=== PATIENT | female | born 1995 | race Caucasian/White ===

== ENCOUNTER → 2022-03-20 | Outpatient (CLI) | payer OTHER ==
[~2022-03-20] MED LIST: IBUP-1780 PO; PROP20TA5 PO
== END ==
LOC: LABNPT 09:23
PROVIDERS: ATTEND Obstetrics & Gynecology
DX: O34.81 Maternal care for other abnormalities of pelvic organs, first trimester (principal); N83.202 Unspecified ovarian cyst, left side; Z3A.00 Weeks of gestation of pregnancy not specified
CPT/HCPCS: 84702; 87088; 87491; 87591

== ENCOUNTER 2022-04-15 09:31 | Outpatient (CLI) | payer OTHER | END 2022-04-15 11:44 | disposition home or self-care (01) | LOC: PREOP 09:31 | PROVIDERS: ATTEND Obstetrics & Gynecology | DX: Z01.818 Encounter for other preprocedural examination (principal) ==

== ENCOUNTER 2022-04-17 11:01 | Day surgery (SDC) | payer OTHER ==
[~2022-04-17] VITALS: Ht 157.5 cm; Wt 78.6 kg
[2022-04-17] VITALS (10 sets, daily range): BP systolic 97–118; BP diastolic 57–76
[2022-04-17] MEDS ORDERED: ceFAZolin INJECTION 1,000 MG ONE (11:33)
[2022-04-17 11:39] LABS: BASOPHILS % (AUTO) 0 % (0-10); EOSINOPHILS # (AUTO) 0.1 10^3/uL (0.0-0.3); EOSINOPHILS % (AUTO) 1 % (0-10); HEMATOCRIT 38 % (35-52); HEMOGLOBIN 13.1 g/dL (11.5-16.0); LYMPHOCYTES # (AUTO) 1.8 10^3/uL (1.0-4.0); LYMPHOCYTES % (AUTO) 26 % (12-44); MEAN CORPUSCULAR HEMOGLOBIN 31 pg (25-34); MEAN CORPUSCULAR HGB CONC 35 g/dL (32-36); MEAN CORPUSCULAR VOLUME 88 fL (80-99); MEAN PLATELET VOLUME 10.9 fL (9.0-12.2); MONOCYTES # (AUTO) 0.6 10^3/uL (0.0-1.0); MONOCYTES % (AUTO) 9 % (0-12); NEUTROPHILS # (AUTO) 4.4 10^3/uL (1.8-7.8); NEUTROPHILS % (AUTO) 63 % (42-75); PLATELET COUNT 307 10^3/uL (130-400)
[2022-04-17] MEDS ORDERED: ONDANSETRON 4 MG/2 ML (SDV) Z0FRAN ONE ×2 (11:45→12:16)
[2022-04-17] MEDS ORDERED: ONDANSETRON 4 MG/2 ML (SDV) Z0FRAN IVP ONE (11:45)
[2022-04-17] MEDS ORDERED: ceFAZolin INJECTION 1,000 MG VIAL IV ONE (11:45)
[2022-04-17] MEDS ORDERED: LACTATED RINGERS 1,000 ML IV PRN (11:45)
[2022-04-17] MEDS ORDERED: FLUC200T9 PO (11:49)
[2022-04-17] MEDS ORDERED: PNV1TABL9 PO (11:50)
[2022-04-17] MEDS ORDERED: SEVOFLURANE (ULTANE) 15 ML INHAL SOLN ONE ×2 (12:16→13:08)
[2022-04-17] MEDS ORDERED: fentaNYL INJ 100 MCG/2 ML AMP ONE (12:16)
[2022-04-17] MEDS ORDERED: MIDAZOLAM 2 MG/2 ML (VERSED) VIAL ONE (12:16)
[2022-04-17] MEDS ORDERED: proPOfol 200 MG/20 ML (DIPRIVAN) VIAL IV ONE (12:16)
[2022-04-17] MEDS ORDERED: LIDOCAINE PF 2% 5 ML (XYLOCAINE) VIAL ONE (12:16)
--- NOTE | 2022-04-17 12:45 | Progress Note-Pre Operative ---
Pre-Operative Progress Note H&P Reviewed The H&P was reviewed, patient examined and no changes noted. Date Seen by Provider: April 17, 2022 Time Seen by Provider: 12:45 Date H&P Reviewed: April 17, 2022 Time H&P Reviewed: 12:45 Pre-Operative Diagnosis: Missed /blighted ovum first trimester ELIAN CISSE MD April 17, 2022 12:45
--- NOTE | 2022-04-17 12:46 | Progress Note-Post Operative ---
Post-Operative Progess Note Surgeon (s)/Model Maker (s) Surgeon ELIAN CISSE MD Model Maker: None Pre-Operative Diagnosis Missed /blighted ovum first trimester Post-Operative Diagnosis Same with pathology pending Procedure & Operative Findings Date of Procedure 04/17/22 Procedure Performed/Findings D&C for first trimester blighted ovum Anesthesia Type General Estimated Blood Loss Estimated blood loss (mL): minimal Specimens/Packing Specimens Removed Uterine contents/products of conception ELIAN CISSE MD April 17, 2022 12:46
--- NOTE | 2022-04-17 12:50 | Discharge Inst-Surgical ---
Discharge Inst-Surgical Depart Medication/Instructions New, Converted or Re-Newed RX: Other Consults/Follow Up Patient Instructions: As directed Orders & Referrals Follow Up Appt: Call to make follow up appt. for patient in 2 weeks. Activity: as tolerated. May take down [id number] nonsteroidal anti-inflammatories/Motrin/Advil up to 800 mg every 6 hours Diet: As tolerated-Clear Liquids only if nauseated. shower or tub bathe as desired. Nothing per vagina (no tampons, douching, or intercoarse) for 2 weeks. Patient to return to the clinic as soon as possible for: Temperature greater than 101F, Severe Pain, Foul discharge from incision or vagina, Excessive Bleeding (more than a period). Activity Activity as Tolerated: No Diet Discharge Diet: No Restrictions ELIAN CISSE MD April 17, 2022 12:50
[2022-04-17] MEDS ORDERED: oxyCODONE/APAP 5/325MG (PERCOCET 5) TABLET PO PRN (13:00)
[2022-04-17] MEDS ORDERED: D5 LR IV SOLUTION 1,000 ML IV SCH (13:00)
[2022-04-17] MEDS ORDERED: fentaNYL INJ 100 MCG/2 ML AMP IVP PRN (13:00)
[2022-04-17] MEDS ORDERED: KETOROLAC 30 MG/ML VIAL IVP ONE (13:00)
[2022-04-17] MEDS ORDERED: ONDANSETRON 4 MG/2 ML (SDV) Z0FRAN IVP PRN ×2 (13:00→13:15)
[2022-04-17] MEDS ORDERED: MEPERIDINE (DEMEROL) INJ 50 MG/ML IVP ONE (13:15)
[2022-04-17] MEDS ORDERED: fentaNYL INJ 100 MCG/2 ML AMP IVP ONE (13:15)
[2022-04-17] MEDS ORDERED: morphine INJ 10 MG/ML 1ML (SYR OR VIAL) IVP ONE (13:15)
--- NOTE | 2022-04-17 13:17 | Anesthesia-General Post-Op ---
General Patient Condition Mental Status/LOC: Same as Preop Cardiovascular: Satisfactory Nausea/Vomiting: Absent Respiratory: Satisfactory Pain: Controlled Complications: Absent Post Op Complications Complications None Follow Up Care/Instructions Patient Instructions None needed. Anesthesia/Patient Condition Patient Condition Patient is doing well, no complaints, stable vital signs, no apparent adverse anesthesia problems. No complications reported per nursing. JAMEY KAYE CRNA April 17, 2022 13:16
--- NOTE | 2022-04-17 23:14 | OPERATIVE REPORT ---
DATE OF SERVICE: 04/17/2022 PREOPERATIVE DIAGNOSIS: First trimester missed /blighted ovum. POSTOPERATIVE DIAGNOSIS: First trimester missed /blighted ovum. OPERATIVE PROCEDURE: Treatment of a missed first trimester with D and C. OPERATIVE DESCRIPTION: With the patient in the supine position under satisfactory general anesthesia, she was repositioned in dorsal lithotomy position in the [facility] and prepped and draped in the usual fashion for vaginal surgery. A weighted speculum placed in posterior fornix of vagina, cervix exposed and grasped anteriorly with single tooth tenaculum. Uterus was sounded to 14 cm with uterine sound. The cervix was then serially dilated with Bill dilators to a #20 Bill and then a #19 Bear dilator was the final step in dilation. curved suction curette was introduced and uterine cavity was suction curettaged in all 4 quadrants with removal of a moderate to large amount of trophoblastic and decidual appearing tissue, blood clot, amniotic fluid and debris. The curved suction curette was removed. The endometrial cavity was sharply curettaged in all 4 quadrants with removal of an additional aliquot of tissue. The curved suction curette was introduced a final time and the endometrial cavity evacuated of all blood clot and debris. The suction curette was removed. There was very minimal bleeding from the cervical os. The tenaculum was removed from the cervix. One of the puncture sites was oozing and it was touched with silver nitrate to effect hemostasis. Now with sponge and needle counts correct, hemostasis assured. Blood loss was around 200 to 250 mL. The patient was stable. Procedure was complete and terminated. The uterus was decreased in size from preop of 10 to 12-week size to about 8-week size, now it was nice and firm. The patient was uneventfully awakened from her general anesthesia and transferred to the recovery room in stable condition with plans for discharge home PAR. Job ID: [id number] DocumentID: [id number] Dictated Date: 04/17/2022 13:21:25 Food Service Order Clerk Date: 04/17/2022 23:13:30 Dictated By: ELIAN CISSE MD
== END 2022-04-17 15:11 ==
LOC: SDC 11:01
PROVIDERS: ATTEND Obstetrics & Gynecology
DX: O02.1 Missed abortion (principal)
CPT/HCPCS: 36415; 85025; 87081

== ENCOUNTER → 2022-07-05 | Outpatient (CLI) | payer OTHER ==
[~2022-07-05] MED LIST changes: +FLUC200T9 PO; +PNV1TABL9 PO
[2022-07-05 09:38] LABS: HEMATOCRIT 38 % (35-52); HEMOGLOBIN 12.4 g/dL (11.5-16.0); MEAN CORPUSCULAR HEMOGLOBIN 30 pg (25-34); MEAN CORPUSCULAR HGB CONC 33 g/dL (32-36); MEAN CORPUSCULAR VOLUME 91 fL (80-99); MEAN PLATELET VOLUME 10.5 fL (9.0-12.2); PLATELET COUNT 310 10^3/uL (130-400); WHITE BLOOD COUNT 7.4 10^3/uL (4.3-11.0)
[2022-07-05 10:06] LABS: ALBUMIN 4.2 GM/DL (3.2-4.5); BILIRUBIN,TOTAL 0.6 MG/DL (0.1-1.0); CREATININE SERUM 0.78 MG/DL (0.60-1.30); POTASSIUM 4.2 MMOL/L (3.6-5.0); TOTAL PROTEIN 6.6 GM/DL (6.4-8.2)
[2022-07-05 10:07] LABS: ERYTHROCYTE SEDIMENTATION RATE 14 MM/HR (0-20)
== END ==
LOC: LAB 09:16
PROVIDERS: ATTEND Family Medicine
DX: G43.909 Migraine, unspecified, not intractable, without status migrainosus (principal); H53.9 Unspecified visual disturbance; N96 Recurrent pregnancy loss; L56.8 Other specified acute skin changes due to ultraviolet radiation
CPT/HCPCS: 36415; 80053; 85027; 85652

== ENCOUNTER → 2022-07-24 | Outpatient (CLI) | payer OTHER ==
--- NOTE | 2022-07-24 17:06 | Diagnostic Imaging Report ---
PROCEDURE: MR imaging of the brain without contrast. TECHNIQUE: Multiplanar, multisequence MR imaging of the brain was performed without contrast. INDICATION: Migraines for one month. Associated vision changes. COMPARISON: none FINDINGS: Please note metallic artifact is visualized originating from the oral cavity. This limits evaluation of the paranasal sinuses, globes and orbits, and anterior portion of the frontal lobes. No acute ischemia, mass, or hemorrhage. The ventricles, cortical sulci, and basilar cisterns are symmetric and unremarkable. The sellar and suprasellar regions have a normal appearance. The brainstem and posterior fossa are unremarkable. The visualized paranasal sinuses and mastoid air cells demonstrate normal signal characteristics. The globes and orbits are symmetric and unremarkable. The scalp and calvarium have a normal appearance. IMPRESSION: 1. No acute ischemia, mass, or hemorrhage. No focal signal abnormalities. Please note evaluation is somewhat suboptimal due to metallic artifact originating from the oral cavity. Dictated by: Dictated on workstation # [id number]
== END ==
LOC: RAD 14:10
PROVIDERS: ATTEND Family Medicine
DX: G43.909 Migraine, unspecified, not intractable, without status migrainosus (principal); H53.9 Unspecified visual disturbance; N96 Recurrent pregnancy loss; L56.8 Other specified acute skin changes due to ultraviolet radiation
CPT/HCPCS: 70551

== ENCOUNTER 2022-08-31 09:00 | Outpatient (RCR) | payer OTHER ==
[2022-09-06] MEDS ORDERED: PROP40TA5 (23:01)
[2022-09-06] MEDS ORDERED: PROG100C11 (23:01)
[2022-09-06] MEDS ORDERED: NITR100C10 (23:01)
[2022-09-07] MEDS ORDERED: OMEG100032 PO (05:22)
[2022-09-07] MEDS ORDERED: ASPI-999 PO (05:23)
[2022-09-07] MEDS ORDERED: OXYC-199 PO (07:05)
[2022-09-07] MEDS ORDERED: IBUP-1780 PO (07:05)
== END 2022-09-23 | disposition home or self-care (01) ==
LOC: LAB 09:00
PROVIDERS: ATTEND Obstetrics & Gynecology
DX: Z32.01 Encounter for pregnancy test, result positive (principal)
CPT/HCPCS: 36415; 84702

== ENCOUNTER 2022-09-06 22:40 | Inpatient (IN) | payer OTHER ==
[~2022-09-06] VITALS: Ht 160 cm; Wt 83.0 kg
[2022-09-06] MEDS ORDERED: METOCLOPRAMIDE INJ 10 MG/2 ML (REGLAN) IVP STA (22:55)
[2022-09-06] MEDS ORDERED: LACTATED RINGERS 1,000 ML IV ONE (23:00)
[2022-09-06] MEDS ORDERED: PROG100C11 (23:01)
[2022-09-06] MEDS ORDERED: NITR100C10 (23:01)
[2022-09-06] MEDS ORDERED: PROP40TA5 (23:01)
--- NOTE | 2022-09-06 23:10 | ED GU-Female ---
General Chief Complaint: Lower Extremity Stated Complaint: ABD PAIN/SPOTTING 5 WKS PREG Source: patient History of Present Illness Date Seen by Provider: Sep 06, 2022 Time Seen by Provider: 22:56 Initial Comments PT ARRIVES VIA POV FROM HOME STATE SHE IS 5 WEEKS WITH LMP 07/30/22 HAS BEEN HAVING SPOTTING OFF AND ON THROUGHOUT THE , ALONG WITH INTERMITTENT CRAMPING HAD POSITIVE TEST 2-3 WEEKS AGO HAS NOT SEEN A DR AT ANY TIME FOR THIS PROBLEM, BUT HAS HAD LAB DONE--STATES SHE HAD HER 4TH HCG LEVEL DONE ON Friday09/04/22 AND WAS GOING DOWN--FROM 675 DOWN TO 425 ( PRIOR LEVELS WERE 102 ON 08/29/22 AND 300 ON 08/31/22 ON LAB DONE HERE AT HOSPITAL-PT STATES THEY WERE GOING UP, THEN STARTED GOING DOWN) HAS NOT HAD AN ULTRASOUND FOR THIS SPOTTING HAS BEEN JUST LIGHT SPOTTING ON TISSUE WITH WIPING, HAS NOT USED ANY PADS AT ANY TIME. HAS A PANTI-LINER ON AND THERE IS NO BLOOD ON IT. JACOB IS "A SOLID SHARP PAIN, WITH CRAMPING AND SEVERE SHARP PAINS SOMETIMES" --ALL ACROSS LOWER ABDOMEN, AND STATES THE SHARP PAINS RADIATE DOWN HER RIGHT LEG HAS HAD ONGOING NAUSEA AND VOMITING THROUGHOUT , BUT TONIGHT SHE VOMITED BECAUSE THE PAIN WAS SO BAD. THOUGHT SHE WAS HAVING UTI SYMPTOMS EARLIER IN THE WEEK, AND CALLED DR. CISSE'S OFFICE ON FRIDAY OR FRIDAY AND RX FOR MACROBID CALLED IN--LAST DOSE IS TOMORROW. NO CONCERNS FOR STD'S, AND NO VAGINAL DISCHARGE PRIOR TO ONSET OF CURRENT SYMPTOMS HAS BEEN TAKING MIDOL, TYLENOL AND FLEXERIL FOR PAIN--NO RELIEF. TOOK FLEXERIL 2 HOURS AGO. PT IS AB 2--D&C'S FOR EACH MISCARRIAGE--ON 08/24/21 AND 04/17/22 PCP: DR. KRAMER RAILROAD YARD WORKER: DR. CISSE. Allergies and Home Medications Allergies Coded Allergies: sulfamethoxazole (Verified Allergy, Unknown, Rash, 03/20/22) trimethoprim (Verified Allergy, Unknown, Rash, 03/20/22) Patient Home Medication List Home Medication List Reviewed: Yes Fluconazole (Fluconazole) 200 Mg Tablet, 200 MG PO WEEK, (Reported) Entered as Reported by: CARLOS MORALES on 04/17/22 1149 Ibuprofen (Ibuprofen) 800 Mg Tablet, 800 MG PO Q6H PRN for PAIN Prescribed by: ELIAN ELLER on 09/20/19 0806 Nitrofurantoin Monohyd/M-Cryst (Nitrofurantoin Norton-Mcr 100 mg) 100 Mg Capsule, (Reported) Entered as Reported by: MARNIE BLACKBURN on 09/06/222300 Last Action: New Order Pnv Cmb#21/Iron/Folic Acid ( Complete Caplet) 14 Mg Iron-400 Mcg Tablet, 1 EACH PO DAILY, (Reported) Entered as Reported by: CARLOS MORALES on 04/17/22 1150 Progesterone,Micronized (Progesterone) 100 Mg Capsule, (Reported) Entered as Reported by: MARNIE BLACKBURN on 09/06/222300 Last Action: New Order Propranolol HCl (Propranolol HCl) 40 Mg Tablet, (Reported) Entered as Reported by: MARNIE BLACKBURN on 09/06/222300 Last Action: New Order Review of Systems Review of Systems Constitutional: no symptoms reported Respiratory: no symptoms reported Cardiovascular: no symptoms reported Gastrointestinal: see HPI, abdominal pain, nausea, vomiting Genitourinary: no symptoms reported, dysuria : Yes LMP: Jul 30, 2022 Musculoskeletal: see HPI Skin: no symptoms reported Psychiatric/Neurological: No Symptoms Reported Endocrine: No Symptoms Reported Hematologic/Lymphatic: No Symptoms Reported Past Scmgdtj-Hqzbsc-Zdrwnf Hx Patient Social History Tobacco Use?: No Smoking Status: Never a Smoker Smokeless Tobacco Frequency: Never a User Use of E-Cig and/or Vaping Camilo: Never a User Substance use?: No Alcohol Use?: Yes Alcohol Frequency: Once in a while Pt feels they are or have been: No Immunizations Up To Date First/Initial COVID19 Vaccinat: 12/14 Second COVID19 Vaccination Ruben: 12/14 COVID19 Vaccine Resident Physician: JORGE Seasonal Allergies Seasonal Allergies: No Past Medical History Surgery/Hospitalization HX: WISDOM TEETH REMOVED D&C 09/20/2019 FOR DUB D&C X 2 FOR MISCARRIAGES--08/24/2021, 04/17/2022 Surgeries: Yes (wisdom teeth; D&C X3) Respiratory: No Currently Using CPAP: No Currently Using BIPAP: No Cardiac: No Neurological: Yes Headaches /Migraines : Yes Hx : 3 Hx Para: 0 Hx Total # of Abortions (Sp): 2 Reproductive Disorders: Yes (DUB) Female Reproductive Disorders: Menstrual Problems Genitourinary: No Gastrointestinal: No Musculoskeletal: No Endocrine: No HEENT: No Cancer: No Psychosocial: No Integumentary: Yes (REPORTS MRSA SKIN INFECTION APPROX 12 YRS AGO, [place] WITH PO ABX) Blood Disorders: No Physical Exam Vital Signs Vital Signs - First Documented 09/06/22 22:54 Temp 37.1 Pulse 74 Resp 18 B/P (MAP) 125/102 (110) Pulse Ox 98 O2 Delivery Room Air Capillary Refill : Height, Weight, BMI Height: '" Weight: lbs. oz. kg; 31.68 BMI Method: General Appearance: WD/WN, no apparent distress (BUT LOOKS UNCOMFORTABLE. WALKS SLIGHTLY BENT AT WAIST, HOLDING RIGHT LOWER ABDOMEN. THEN DOES NOT WANT TO SIT OR LAY ON BED, SITTING ON EDGE OF BED WITH RIGHT LEG HANGING OFF THE BED), other Cardiovascular: regular rate, rhythm, no murmur Respiratory: normal breath sounds Gastrointestinal: soft; No distended; guarding, rebound, tenderness (DIFFUSE LOWER ABDOMINAL TENDERNESS, BUT IS VERY TENDER IN RLQ, WITH EQUIVOCAL REBOUND IN RLQ. ); No hernia, No mass Back: no CVA tenderness Extremities: normal inspection Neurologic/Psychiatric: no motor/sensory deficits, alert, oriented x 3 Skin: normal color, warm/dry Progress/Results/Core Measures Suspected Sepsis SIRS Temperature: Pulse: Respiratory Rate: Laboratory Tests 09/06/22 23:13: White Blood Count 13.5H Blood Pressure / Mean: Laboratory Tests 09/06/22 23:13: Creatinine 0.93, Platelet Count 416H, Total Bilirubin 0.5 Results/Orders Lab Results Laboratory Tests Test 09/06/22 23:11 09/06/22 23:13 Range/Units Urine Color YELLOW Urine Clarity CLEAR Urine pH 6.5 5-9 Urine Specific [place] 1.025 H 1.016-1.022 Urine Protein NEGATIVE NEGATIVE Urine Glucose (UA) NEGATIVE NEGATIVE Urine Ketones NEGATIVE NEGATIVE Urine Nitrite NEGATIVE NEGATIVE Urine Bilirubin NEGATIVE NEGATIVE Urine Urobilinogen 0.2 < = 1.0 MG/DL Urine Leukocyte Esterase NEGATIVE NEGATIVE Urine RBC (Auto) 3+ H NEGATIVE Urine RBC 10-25 H /HPF Urine WBC NONE /HPF Urine Squamous Epithelial Cells 0-2 /HPF Urine Crystals NONE /LPF Urine Bacteria NEGATIVE /HPF Urine Casts NONE /LPF Urine Mucus SMALL H /LPF Urine Culture Indicated NO Urine Opiates Screen NEGATIVE NEGATIVE Urine Oxycodone Screen NEGATIVE NEGATIVE Urine Methadone Screen NEGATIVE NEGATIVE Urine Propoxyphene Screen NEGATIVE NEGATIVE Urine Barbiturates Screen NEGATIVE NEGATIVE Ur Tricyclic Antidepressants Screen NEGATIVE NEGATIVE Urine Phencyclidine Screen NEGATIVE NEGATIVE Urine Amphetamines Screen NEGATIVE NEGATIVE Urine Methamphetamines Screen NEGATIVE NEGATIVE Urine Benzodiazepines Screen NEGATIVE NEGATIVE Urine Cocaine Screen NEGATIVE NEGATIVE Urine Cannabinoids Screen NEGATIVE NEGATIVE White Blood Count 13.5 H 4.3-11.0 10^3/uL Red Blood Count 4.17 3.80-5.11 10^6/uL Hemoglobin 12.7 11.5-16.0 g/dL Hematocrit 37 35-52 % Mean Corpuscular Volume 88 80-99 fL Mean Corpuscular Hemoglobin 31 25-34 pg Mean Corpuscular Hemoglobin Concent 35 32-36 g/dL Red Cell Distribution Width 12.7 10.0-14.5 % Platelet Count 416 H 130-400 10^3/uL Mean Platelet Volume 10.7 9.0-12.2 fL Immature Granulocyte % (Auto) 0 % Neutrophils (%) (Auto) 58 42-75 % Lymphocytes (%) (Auto) 31 12-44 % Monocytes (%) (Auto) 9 0-12 % Eosinophils (%) (Auto) 1 0-10 % Basophils (%) (Auto) 1 0-10 % Neutrophils # (Auto) 7.9 H 1.8-7.8 10^3/uL Lymphocytes # (Auto) 4.1 H 1.0-4.0 10^3/uL Monocytes # (Auto) 1.2 H 0.0-1.0 10^3/uL Eosinophils # (Auto) 0.2 0.0-0.3 10^3/uL Basophils # (Auto) 0.1 0.0-0.1 10^3/uL Immature Granulocyte # (Auto) 0.0 0.0-0.1 10^3/uL Sodium Level 140 135-145 MMOL/L Potassium Level 4.0 3.6-5.0 MMOL/L Chloride Level 108 H 98-107 MMOL/L Carbon Dioxide Level 19 L 21-32 MMOL/L Anion Gap 13 5-14 MMOL/L Blood Urea Nitrogen 15 7-18 MG/DL Creatinine 0.93 0.60-1.30 MG/DL Estimat Glomerular Filtration Rate 87 BUN/Creatinine Ratio 16 Glucose Level 99 70-105 MG/DL Calcium Level 9.3 8.5-10.1 MG/DL Corrected Calcium 9.1 8.5-10.1 MG/DL Total Bilirubin 0.5 0.1-1.0 MG/DL Aspartate Amino Transf (AST/SGOT) 16 5-34 U/L Alanine Aminotransferase (ALT/SGPT) 14 0-55 U/L Alkaline Phosphatase 52 40-136 U/L Total Protein 7.2 6.4-8.2 GM/DL Albumin 4.3 3.2-4.5 GM/DL Human Chorionic Gonadotropin, Quant 526 H <5 MIU/ML My Orders Orders - CHRIS RUIZ DO Cbc With Automated Diff (09/06/22:55) Comprehensive Metabolic Panel (09/06/22 22:55) Drug Screen Stat (Urine) (09/06/22 22:55) Hcg,Quantitative (09/06/22:55) Ua Culture If Indicated (09/06/22:55) Abo Rh Type (09/06/22:55) Monitor-Rhythm Ecg Trace Only (09/06/22 22:55) Ed Iv/Invasive Line Start (09/06/22 22:55) Lactated Ringers (Lr 1000 Ml Iv Solution (09/06/22 23:00) Metoclopramide Injection (Reglan Injecti (09/06/22 22:55) Us Ob<14 Wks Sngle W/Transvag (09/07/22 23:57) Ed Iv/Invasive Line Start (09/07/22 03:23) Lactated Ringers (Lr 1000 Ml Iv Solution (09/07/22 03:30) Fentanyl Inj (Sublimaze Injection) (09/07/22 03:23) Medications Given in ED Current Medications Medications Dose Ordered Sig/Josie Route Start Time Stop Time Status Last Admin Dose Admin Lactated Ringer's 1,000 ml @ 0 mls/hr Q0M ONCE IV 09/06/22 23:00 09/06/22 23:03 DC 09/06/22 23:12 0 MLS/HR Vital Signs/I&O 09/06/22 09/07/22 22:54 03:33 Temp 37.1 37.0 Pulse 74 72 Resp 18 16 B/P (MAP) 125/102 (110) 119/74 Pulse Ox 98 99 O2 Delivery Room Air Room Air 09/07/22 00:00 Intake Total 1000 ml Balance 1000 ml Capillary Refill : Progress Note : Progress Note BLOOD TYPE IS A+ GIVEN IV FLUIDS, AND REGLAN--NAUSEA IMPROVED. LATER GIVEN FENTANYL FOR PAIN NO DETERIORATION IN PT'S CONDITION DURING ER STAY 0058--ACTING MANAGER HERE. NO VERBAL REPORT FROM ACTING MANAGER, WHEN HE BROUGHT PT BACK MARKED DELAY IN OBTAINING ULTRASOUND RESULTS 023--CALLED XRAY DEPT, THERE IS NO ULTRASOUND REPORT YET. CLINICAL NURSING MANAGER REPORTS THAT ACTING MANAGER DID NOT SEND ULTRASOUND FILMS TO [facility]. CLINICAL NURSING MANAGER WILL SEND THEM NOW. Diagnostic Imaging Comments OB ULTRASOUND--PER [facility] RADIOLOGIST VIA PHONE AT [id number], AND VIA FAX AT [phone] -EMPTY/NORMAL UTERUS -RIGHT OVARY/ADNEXA IS ENLARGED AND ABNORMAL, WITH OUT INCREASED DOPPLER FLOW. -FREE FLUID IN PELVIS AND RIGHT ADNEXA. -FINDINGS CONSISTENT WITH RIGHT ECTOPIC GESTATION. Reviewed: Reviewed by Me, Discussed w/Radiologist Departure Communication (Admissions) 314--SPOKE WITH DR. CISSE. HE ADVISES TO ADMIT PT AND HE WILL TAKE TO SURGERY FIRST THING THIS MORNING, PT IS HEMODYNAMICALLY STABLE. Impression Primary Impression: RIGHT ECTOPIC GESTATION Disposition: ADMITTED INPATIENT Condition: Stable Admissions Decision to Admit Reason: Admit from ER (General) Decision to Admit/Date: Sep 07, 2022 Time/Decision to Admit Time: 03:15 Departure-Patient Inst. Referrals: MICHELLE KRAMER DO (PCP/Family) Primary Care Physician CHRIS RUIZ DO Sep 06, 2022 23:10
[2022-09-06 23:31] LABS: BASOPHILS # (AUTO) 0.1 10^3/uL (0.0-0.1); BASOPHILS % (AUTO) 1 % (0-10); EOSINOPHILS # (AUTO) 0.2 10^3/uL (0.0-0.3); EOSINOPHILS % (AUTO) 1 % (0-10); HEMATOCRIT 37 % (35-52); HEMOGLOBIN 12.7 g/dL (11.5-16.0); LYMPHOCYTES # (AUTO) 4.1 10^3/uL (1.0-4.0); LYMPHOCYTES % (AUTO) 31 % (12-44); MEAN CORPUSCULAR HEMOGLOBIN 31 pg (25-34); MEAN CORPUSCULAR HGB CONC 35 g/dL (32-36); MEAN CORPUSCULAR VOLUME 88 fL (80-99); MEAN PLATELET VOLUME 10.7 fL (9.0-12.2); MONOCYTES # (AUTO) 1.2 10^3/uL (0.0-1.0); MONOCYTES % (AUTO) 9 % (0-12); NEUTROPHILS # (AUTO) 7.9 10^3/uL (1.8-7.8); NEUTROPHILS % (AUTO) 58 % (42-75); PLATELET COUNT 416 10^3/uL (130-400); WHITE BLOOD COUNT 13.5 10^3/uL (4.3-11.0)
[2022-09-06 23:36] LABS: BILIRUBIN,URINE NEGATIVE (NEGATIVE); CLARITY,URINE CLEAR; COLOR,URINE YELLOW; GLUCOSE, URINE (UA) NEGATIVE (NEGATIVE); KETONES,URINE NEGATIVE (NEGATIVE); LEUKOCYTE ESTERASE ,URINE NEGATIVE (NEGATIVE); NITRITE,URINE NEGATIVE (NEGATIVE); PH,URINE 6.5 (5-9); PROTEIN,URINE NEGATIVE (NEGATIVE)
[2022-09-06 23:46] LABS: AMPHETAMINE SCREEN, URINE NEGATIVE (NEGATIVE); BARBITURATE SCREEN URINE NEGATIVE (NEGATIVE); BENZODIAZEPINES SCREEN URINE NEGATIVE (NEGATIVE); COCAINE SCREEN URINE NEGATIVE (NEGATIVE); METHADONE STAT NEGATIVE (NEGATIVE); OXYCODONE STAT NEGATIVE (NEGATIVE); TRICYCLIC ANTIDEPRESSANTS SCRE NEGATIVE (NEGATIVE)
[2022-09-06 23:47] LABS: CANNABINOID SCREEN, URINE NEGATIVE (NEGATIVE); OPIATE SCREEN URINE NEGATIVE (NEGATIVE); PROPOXYPHENE STAT NEGATIVE (NEGATIVE)
[2022-09-06 23:50] LABS: BACTERIA,URINE NEGATIVE /HPF; SQUAMOUS EPITHELIAL CELL,UR 0-2 /HPF
[2022-09-07] VITALS (11 sets, daily range): BP systolic 106–129; BP diastolic 56–85
[2022-09-07] LABS: ALBUMIN 4.3 GM/DL (3.2-4.5); BILIRUBIN,TOTAL 0.5 MG/DL (0.1-1.0); CALCIUM 9.3 MG/DL (8.5-10.1); CREATININE SERUM 0.93 MG/DL (0.60-1.30); TOTAL PROTEIN 7.2 GM/DL (6.4-8.2)
[2022-09-07] MEDS ORDERED: fentaNYL INJ 100 MCG/2 ML AMP IVP STA (03:23)
[2022-09-07] MEDS ORDERED: LACTATED RINGERS 1,000 ML IV ONE (03:30)
[2022-09-07] MEDS ORDERED: LACTATED RINGERS 1,000 ML IV SCH (04:00)
[2022-09-07] MEDS ORDERED: ONDANSETRON 4 MG/2 ML (SDV) Z0FRAN IVP PRN ×2 (04:00→07:15)
[2022-09-07] MEDS ORDERED: fentaNYL INJ 100 MCG/2 ML AMP IVP PRN (04:00)
[2022-09-07] MEDS ORDERED: OMEG100032 PO (05:22)
[2022-09-07] MEDS ORDERED: ASPI-999 PO (05:23)
[2022-09-07 05:37] LABS: BASOPHILS # (AUTO) 0.1 10^3/uL (0.0-0.1); BASOPHILS % (AUTO) 1 % (0-10); EOSINOPHILS # (AUTO) 0.1 10^3/uL (0.0-0.3); EOSINOPHILS % (AUTO) 1 % (0-10); HEMATOCRIT 36 % (35-52); HEMOGLOBIN 12.3 g/dL (11.5-16.0); LYMPHOCYTES # (AUTO) 3.1 10^3/uL (1.0-4.0); LYMPHOCYTES % (AUTO) 37 % (12-44); MEAN CORPUSCULAR HEMOGLOBIN 31 pg (25-34); MEAN CORPUSCULAR HGB CONC 34 g/dL (32-36); MEAN CORPUSCULAR VOLUME 89 fL (80-99); MONOCYTES # (AUTO) 0.6 10^3/uL (0.0-1.0); MONOCYTES % (AUTO) 8 % (0-12); NEUTROPHILS # (AUTO) 4.5 10^3/uL (1.8-7.8); NEUTROPHILS % (AUTO) 54 % (42-75); PLATELET COUNT 352 10^3/uL (130-400); WHITE BLOOD COUNT 8.4 10^3/uL (4.3-11.0)
[2022-09-07 05:55] LABS: POTASSIUM 3.7 MMOL/L (3.6-5.0)
[2022-09-07 05:56] LABS: CALCIUM 9.2 MG/DL (8.5-10.1)
[2022-09-07 06:01] LABS: CREATININE SERUM 0.78 MG/DL (0.60-1.30)
[2022-09-07] MEDS ORDERED: LIDOCAINE/EPI 1%-1:100,000 (XYLOCAINE) 10 ML ONE (06:40)
[2022-09-07] MEDS ORDERED: ceFAZolin INJECTION 1,000 MG ONE (06:41)
[2022-09-07] MEDS ORDERED: ROCURONIUM 10 MG/ML 5 ML SYRINGE IV ONE (06:49)
[2022-09-07] MEDS ORDERED: LIDOCAINE PF 2% 5 ML (XYLOCAINE) VIAL ONE (06:49)
[2022-09-07] MEDS ORDERED: proPOfol 200 MG/20 ML (DIPRIVAN) VIAL IV ONE (06:49)
[2022-09-07] MEDS ORDERED: MIDAZOLAM 2 MG/2 ML (VERSED) VIAL ONE (06:49)
[2022-09-07] MEDS ORDERED: ONDANSETRON 4 MG/2 ML (SDV) Z0FRAN ONE ×2 (06:49→07:38)
[2022-09-07] MEDS ORDERED: fentaNYL INJ 100 MCG/2 ML AMP ONE (06:49)
--- NOTE | 2022-09-07 06:54 | Diagnostic Imaging Report ---
TECHNIQUE: Live grayscale and color Doppler ultrasound was performed of the pelvis both transabdominally and endovaginally. REASON FOR THE EXAM: Right-sided abdominal pain. Spotting. COMPARISON: None. FINDINGS: The uterus and ovaries have an unremarkable transabdominal appearance. Endovaginal imaging was performed for further characterization. The uterus measures 8.1 x 3.6 x 5.4 cm. The endometrial stripe measures 0.8 cm. No findings to suggest intrauterine gestation. No uterine mass is seen. The right ovary measures 4.8 x 2.8 x 3.1 cm. There is a somewhat irregular contour of the right ovary with a possible involuting cyst present. Normal color Doppler flow is seen within the right ovary. The left ovary measures 2.8 x 2.1 x 2.5 cm. A dominant follicle/cyst is seen in the left ovary measuring 1.6 cm. There is normal color Doppler flow within the left ovary. A small amount of free fluid is seen in the pelvis. IMPRESSION: 1. No sonographic evidence of intrauterine gestation. 2. Irregular appearance of the right ovary with possible involuted cyst present. This could potentially represent a demised ectopic in the correct clinical scenario. Recommend continued followup with serial beta hCGs and pelvic ultrasound as indicated. 3. No evidence of ovarian torsion. 4. Small amount of free fluid in the pelvis. 5. I agree with the overnight report. Dictated by: Dictated on workstation # [id number]
[2022-09-07] MEDS ORDERED: IBUP-1780 PO (07:05)
[2022-09-07] MEDS ORDERED: OXYC-199 PO (07:05)
--- NOTE | 2022-09-07 07:07 | Discharge Inst-Surgical ---
Discharge Inst-Surgical Depart Medication/Instructions New, Converted or Re-Newed RX: Transmitted to Pharmacy Consults/Follow Up Patient Instructions: As directed Orders & Referrals Follow Up Appt: Return to clinic on 2021 at 9:30 AM for suture removal Activity: Rest for 24 hours, than as tolerated. Wound Care: May remove Band-Aid tomorrow. Replace as desired. Keep incisions clean and dry. Wash daily with soap and water. Prescriptions for Percocet and Motrin have been transmitted electronically to this patient's pharmacy Diet: As tolerated shower or tub bathe as desired. No driving for 24 hours, no alcoholic beverages for 24 hours, and nothing per vagina (no tampons, douching, or intercoarse) for 2 weeks. Patient to return to the clinic as soon as possible for: Temperature greater than 101F, Severe Pain, Foul discharge from incision or vagina, Excessive Bleeding (more than a period). Activity Activity as Tolerated: No Diet Discharge Diet: No Restrictions ELIAN CISSE MD Sep 07, 2022 07:07
--- NOTE | 2022-09-07 07:13 | History & Physical ---
History and Physical Date Seen by Provider: Sep 07, 2022 Time Seen by Provider: 07:07 This patient is a 26-year-old female admitted via the emergency department last evening for Severe right lower quadrant pain.Evaluation in the emergency department was concerning for a right ectopic with findings of an adnexal mass on the right and an empty uterus on ultrasound. This patient has been followed in my clinic for positive test with va ginal bleeding. Serial hCGs had shown progressive decrease. In the emergency department last night hCG is reported over 500 which represents an increase from the last value obtained in clinic. Patient's was hemodynamically stable her pain was controlled with medication she was admitted for observation with plan for proceeding to the operating room this morning for D&C and laparoscopic evaluation and treatment of ectopic vs HCLC Allergies sulfa Bactrim Medications are vitamins and progesterone Medical history Social history Family history HEENT exam is normal Neck is nontender no lymphadenopathy no thyromegaly Abdomen is soft tender in the right lower quadrant there is minimal rigidity minimal guarding and no rebound Extremities show no clubbing cyanosis. There is no Homans' sign. Pelvic exam is deferred Laboratory Tests Test 09/06/22 23:11 09/06/22 23:13 09/07/22 05:02 Range/Units Urine Color YELLOW Urine Clarity CLEAR Urine pH 6.5 5-9 Urine Specific [place] 1.025 H 1.016-1.022 Urine Protein NEGATIVE NEGATIVE Urine Glucose (UA) NEGATIVE NEGATIVE Urine Ketones NEGATIVE NEGATIVE Urine Nitrite NEGATIVE NEGATIVE Urine Bilirubin NEGATIVE NEGATIVE Urine Urobilinogen 0.2 < = 1.0 MG/DL Urine Leukocyte Esterase NEGATIVE NEGATIVE Urine RBC (Auto) 3+ H NEGATIVE Urine RBC 10-25 H /HPF Urine WBC NONE /HPF Urine Squamous Epithelial Cells 0-2 /HPF Urine Crystals NONE /LPF Urine Bacteria NEGATIVE /HPF Urine Casts NONE /LPF Urine Mucus SMALL H /LPF Urine Culture Indicated NO Urine Opiates Screen NEGATIVE NEGATIVE Urine Oxycodone Screen NEGATIVE NEGATIVE Urine Methadone Screen NEGATIVE NEGATIVE Urine Propoxyphene Screen NEGATIVE NEGATIVE Urine Barbiturates Screen NEGATIVE NEGATIVE Ur Tricyclic Antidepressants Screen NEGATIVE NEGATIVE Urine Phencyclidine Screen NEGATIVE NEGATIVE Urine Amphetamines Screen NEGATIVE NEGATIVE Urine Methamphetamines Screen NEGATIVE NEGATIVE Urine Benzodiazepines Screen NEGATIVE NEGATIVE Urine Cocaine Screen NEGATIVE NEGATIVE Urine Cannabinoids Screen NEGATIVE NEGATIVE White Blood Count 13.5 H 8.4 4.3-11.0 10^3/uL Red Blood Count 4.17 4.03 3.80-5.11 10^6/uL Hemoglobin 12.7 12.3 11.5-16.0 g/dL Hematocrit 37 36 35-52 % Mean Corpuscular Volume 88 89 80-99 fL Mean Corpuscular Hemoglobin 31 31 25-34 pg Mean Corpuscular Hemoglobin Concent 35 34 32-36 g/dL Red Cell Distribution Width 12.7 12.6 10.0-14.5 % Platelet Count 416 H 352 130-400 10^3/uL Mean Platelet Volume 10.7 11.0 9.0-12.2 fL Immature Granulocyte % (Auto) 0 0 % Neutrophils (%) (Auto) 58 54 42-75 % Lymphocytes (%) (Auto) 31 37 12-44 % Monocytes (%) (Auto) 9 8 0-12 % Eosinophils (%) (Auto) 1 1 0-10 % Basophils (%) (Auto) 1 1 0-10 % Neutrophils # (Auto) 7.9 H 4.5 1.8-7.8 10^3/uL Lymphocytes # (Auto) 4.1 H 3.1 1.0-4.0 10^3/uL Monocytes # (Auto) 1.2 H 0.6 0.0-1.0 10^3/uL Eosinophils # (Auto) 0.2 0.1 0.0-0.3 10^3/uL Basophils # (Auto) 0.1 0.1 0.0-0.1 10^3/uL Immature Granulocyte # (Auto) 0.0 0.0 0.0-0.1 10^3/uL Sodium Level 140 138 135-145 MMOL/L Potassium Level 4.0 3.7 3.6-5.0 MMOL/L Chloride Level 108 H 107 98-107 MMOL/L Carbon Dioxide Level 19 L 22 21-32 MMOL/L Anion Gap 13 9 5-14 MMOL/L Blood Urea Nitrogen 15 13 7-18 MG/DL Creatinine 0.93 0.78 0.60-1.30 MG/DL Estimat Glomerular Filtration Rate 87 108 BUN/Creatinine Ratio 16 17 Glucose Level 99 88 70-105 MG/DL Calcium Level 9.3 9.2 8.5-10.1 MG/DL Corrected Calcium 9.1 8.5-10.1 MG/DL Total Bilirubin 0.5 0.1-1.0 MG/DL Aspartate Amino Transf (AST/SGOT) 16 5-34 U/L Alanine Aminotransferase (ALT/SGPT) 14 0-55 U/L Alkaline Phosphatase 52 40-136 U/L Total Protein 7.2 6.4-8.2 GM/DL Albumin 4.3 3.2-4.5 GM/DL Human Chorionic Gonadotropin, Quant 526 H <5 MIU/ML Assessment and plan Abnormally following and rising quantitative hCG in a patient with vaginal bleeding with positive test. On presentation with severe abdominal pain ED evaluation was consistent with a right adnexal mass concerning for an ectopic . There was associated free fluid concerning for hemoperitoneum. Plan now is for laparoscopic evaluation and treatment. We will obtain endo metrial curettings by D&C as well. Surgical risk complications recovery and follow-up have been discussed with patient prior to proceeding to the operating room Acute abdomen/right adnexal complex mass consistent with ectopic Allergies and Home Medications Allergies Coded Allergies: sulfamethoxazole (Verified Allergy, Unknown, Rash, 03/20/22) trimethoprim (Verified Allergy, Unknown, Rash, 03/20/22) Patient Home Medication List Home Medication List Reviewed: No Aspirin (Aspirin) 81 Mg Tab.chew, 81 MG PO DAILY, (Reported) Entered as Reported by: DAVID GARZA on 09/07/22522 Last Action: New Order Ibuprofen (Ibuprofen) 800 Mg Tablet, 800 MG PO Q6H PRN for PAIN Prescribed by: ELIAN ELLER on 09/07/22704 Nitrofurantoin Monohyd/M-Cryst (Nitrofurantoin [place]-Mcr 100 mg) 100 Mg Capsule, (Reported) Entered as Reported by: MARNIE BLACKBURN on 09/06/222300 Last Action: New Order [place]-3/Dha/Epa/Fish Oil (Fish Oil 1,000 mg Softgel) 1,000 Mg (120 Mg-180 Mg) Capsule, 1,000 MG PO DAILY, (Reported) Entered as Reported by: DAVID GARZA on 09/07/22521 Last Action: New Order Oxycodone HCl/Acetaminophen (Percocet 5-325 mg Tablet) 5 Mg-325 Mg Tablet, 1 TAB PO Q4H PRN for PAIN-MODERATE Prescribed by: ELIAN ELLER on 09/07/22 0705 Pnv Cmb#21/Iron/Folic Acid ( Complete Caplet) 14 Mg Iron-400 Mcg Tablet, 1 EACH PO DAILY, (Reported) Entered as Reported by: CARLOS MORALES on 04/17/22 1150 Progesterone,Micronized (Progesterone) 100 Mg Capsule, (Reported) Entered as Reported by: MARNIE BLACKBURN on 09/06/222300 Last Action: New Order Propranolol HCl (Propranolol HCl) 40 Mg Tablet, (Reported) Entered as Reported by: MARNIE BLACKBURN on 09/06/222300 Last Action: New Order ELIAN CISSE MD Sep 07, 2022 07:13
[2022-09-07] MEDS ORDERED: KETOROLAC 30 MG/ML VIAL IVP ONE (07:15)
[2022-09-07] MEDS ORDERED: D5 LR IV SOLUTION 1,000 ML IV SCH (07:15)
[2022-09-07] MEDS ORDERED: PROMETHAZINE INJ 25 MG/ML (PHENERGAN) AMP IM ONE (07:15)
[2022-09-07] MEDS ORDERED: MEPERIDINE (DEMEROL) INJ 100 MG/ML IM ONE (07:15)
[2022-09-07] MEDS ORDERED: KETOROLAC 30 MG/ML VIAL ONE (07:16)
[2022-09-07] MEDS ORDERED: HYDROmorphone 2 MG/ML VIAL (DILAUDID) ONE (07:38)
[2022-09-07] MEDS ORDERED: PROMETHAZINE INJ 25 MG/ML (PHENERGAN) AMP ONE (07:38)
[2022-09-07] MEDS ORDERED: morphine INJ 10 MG/ML 1ML (SYR OR VIAL) ONE (07:38)
[2022-09-07] MEDS ORDERED: MEPERIDINE (DEMEROL) INJ 50 MG/ML ONE (07:41)
[2022-09-07] MEDS ORDERED: NEOSTIGMINE (BLOXIVERZ ) 1 MG/1ML 10 ML VIAL ONE (07:53)
[2022-09-07] MEDS ORDERED: GLYCOPYRROLATE 0.2 MG/ML (ROBINUL) 2 ML VIAL ONE (07:53)
[2022-09-07] MEDS ORDERED: SEVOFLURANE (ULTANE) 15 ML INHAL SOLN ONE (07:57)
--- NOTE | 2022-09-07 08:32 | Anesthesia-General Post-Op ---
General Patient Condition Mental Status/LOC: Same as Preop Cardiovascular: Satisfactory Nausea/Vomiting: Absent Respiratory: Satisfactory Pain: Controlled Complications: Absent Post Op Complications Complications None Follow Up Care/Instructions Patient Instructions None needed. Anesthesia/Patient Condition Patient Condition Patient is doing well, no complaints, stable vital signs, no apparent adverse anesthesia problems. No complications reported per nursing. CARLIE HARRIS CRNA Sep 07, 2022 08:31
[2022-09-07] MEDS: oxyCODONE/APAP 5/325MG (PERCOCET 5) TABLET PO PRN ×2 (10:44→14:45)
--- NOTE | 2022-09-07 13:14 | OPERATIVE REPORT ---
DATE OF SERVICE: 09/07/2022 PREOPERATIVE DIAGNOSES: Abnormal uterine bleeding and acute abdomen with suspected right fallopian tube ectopic POSTOPERATIVE DIAGNOSES: Abnormal uterine bleeding and acute abdomen with suspected right fallopian tube ectopic with ruptured right fallopian tube and hemoperitoneum. OPERATIVE PROCEDURE: Laparoscopic right salpingectomy as well as D and C. OPERATIVE DESCRIPTION: With the patient in the supine position under satisfactory general anesthesia, she was repositioned in dorsal lithotomy position in the [facility] and prepped and draped in the usual fashion for abdominal and vaginal surgery. Urinary bladder was drained with a straight catheter. A weighted speculum placed in the posterior fornix of vagina, cervix exposed and grasped anteriorly with single tooth tenaculum. Uterus sounded to 12 cm with uterine sound. The cervix was then serially dilated with Bill dilators to a #20 Bill. A sharp curette was introduced and endometrial cavity curettaged in all 4 quadrants to good uterine cry. The endometrial curettings were sent to pathology for permanent section. A uterine manipulator was placed, and the bulb filled with 4 mL of air. The tenaculum and speculum were removed, and the patient was brought in low dorsal lithotomy position. A 5 mm incision was made in the patient's left upper quadrant. Veress needle was placed through that incision into the abdominal cavity. Correct placement confirmed with water drop test. The abdomen was insufflated with 2.4 liters of carbon dioxide and the Veress needle was removed and a 5 mm Optiview laparoscopic port placed under direct vision. The abdomen was examined. There was diffuse hemoperitoneum. There was blood pooled in the pelvis. A 12 mm port was placed through an incision of that size in the inferior margin of the umbilicus and a 5 mm port through a 5 mm incision just above the symphysis pubis. The pelvis was irrigated, and the blood aspirated out and the patient was eventually placed in Trendelenburg, allowing the bowel to spill out of the pelvis and exposing the pelvic contents, which showed a largely distended right fallopian tube that was obviously ruptured with blood extruding from the ruptured and from the fimbriated end. The right ovary appeared normal as did the left tube and ovary. The uterus was quite mottled in appearance consistent with adenomyosis, but otherwise normal. Laparoscope was rotated. The appendix was identified. It was a normal vermiform appendix. Laparoscope was brought back to the pelvis. The fallopian tube was grasped and elevated. An Endo-BRIDGET was placed across the mesosalpinx and fired, almost severing the fallopian tube. There was a small portion of tissue still attached. EndoShears were used. Electrocautery were used to sever that any remaining blood vessels. The right fallopian tube was then placed in an Endobag and brought out through the umbilical port. The pelvis was irrigated again and examined for hemostasis that being complete, the procedure was terminated. The operative instruments were removed as were the ports. The abdomen was evacuated of the insufflating gas in the process of removing the ports. The skin incisions were closed with nylon sutures. The fascia at the infraumbilical incision was closed with a [id number] suture of 2-0 Vicryl. Speculum was replaced in the vagina after removal of the uterine manipulator. The cervix was examined for hemostasis, which was complete. There was minimal bleeding at the cervical os and no bleeding from the puncture sites from the tenaculum. With sponge and needle counts correct, hemostasis assured and blood loss minimal, the patient was uneventfully awakened from her general anesthesia and transferred to recovery room in stable condition with plans for discharge home PAR. Job ID: [id number] DocumentID: [id number] Dictated Date: 09/07/2022 08:50:59 Supplemental Manager Date: 09/07/2022 13:14:11 Dictated By: ELIAN CISSE MD
== END 2022-09-07 14:57 | disposition home or self-care (01) | DRG 817 ==
LOC: EDUNIT# 22:40 → ER 22:43 → WS 09-07 03:15
PROVIDERS: ADMIT Obstetrics & Gynecology; ATTEND Obstetrics & Gynecology
PROC: 10D24ZZ Extraction of Products of Conception, Ectopic, Percutaneous Endoscopic Approach (ICD-10-PCS; principal; 2022-09-07 07:04)
DX: O00.101 Right tubal pregnancy without intrauterine pregnancy (principal); K66.1 Hemoperitoneum; O08.1 Delayed or excessive hemorrhage following ectopic and molar pregnancy
CPT/HCPCS: 36415; 76801; 76817; 80048; 80053; 80306; 81000; 84702; 85025; 86900; 86901; 87081

== ENCOUNTER → 2022-10-07 | Outpatient (CLI) | payer OTHER ==
[~2022-10-07] MED LIST changes: +ASPI-999 PO; +NITR100C10; +OMEG100032 PO; +OXYC-199 PO; +PROG100C11; +PROP40TA5
--- NOTE | 2022-10-07 13:20 | Diagnostic Imaging Report ---
PROCEDURE: US Thyroid. TECHNIQUE: Multiple real-time grayscale images were obtained of the thyroid in various projections. INDICATION: Thyroid enlargement. No prior studies are available for comparison. Right lobe of thyroid measures 4.2 x 1.2 x 1.0 cm and the left lobe measures 3.3 x 0.7 x 1.5 cm. Isthmus is 2 mm in thickness. Both lobes of thyroid appear to be homogeneous without evidence of discrete mass. There is a 7 mm nodular echogenicity posterior to the right lobe consistent with parathyroid. IMPRESSION: Normal thyroid ultrasound. No discrete thyroid mass is detected. Dictated by: Dictated on workstation # [id number]
== END ==
LOC: RAD 12:01
PROVIDERS: ATTEND Family Medicine
DX: E04.9 Nontoxic goiter, unspecified (principal)
CPT/HCPCS: 76536

== ENCOUNTER → 2022-11-21 | Outpatient (CLI) | payer OTHER | LOC: LAB 12:19 | PROVIDERS: ATTEND Obstetrics & Gynecology | DX: Z32.00 Encounter for pregnancy test, result unknown (principal) | CPT/HCPCS: 36415; 84702 ==

== ENCOUNTER → 2022-11-23 | Outpatient (CLI) | payer OTHER | LOC: LAB 10:51 | PROVIDERS: ATTEND Obstetrics & Gynecology | DX: Z32.00 Encounter for pregnancy test, result unknown (principal) | CPT/HCPCS: 36415; 84702 ==

== ENCOUNTER 2022-11-24 03:20 | Emergency (ER) | payer OTHER ==
[~2022-11-24] VITALS: Ht 170 cm; Wt 72.0 kg
[2022-11-24 03:46] LABS: BILIRUBIN,URINE NEGATIVE (NEGATIVE); CLARITY,URINE CLEAR; COLOR,URINE YELLOW; GLUCOSE, URINE (UA) NEGATIVE (NEGATIVE); KETONES,URINE NEGATIVE (NEGATIVE); LEUKOCYTE ESTERASE ,URINE NEGATIVE (NEGATIVE); NITRITE,URINE NEGATIVE (NEGATIVE); PROTEIN,URINE NEGATIVE (NEGATIVE)
[2022-11-24 03:57] LABS: BACTERIA,URINE TRACE /HPF
--- NOTE | 2022-11-24 04:12 | ED GU-Female ---
General Chief Complaint: OB < 20 WEEKS Stated Complaint: 4 WKS PREG | SPOTTING AND HAVING LEFT SIDE PAIN Nursing Triage Note: Pt presents with c/o L flank pain and vaginal bleeding. Pt is approx 4 weeks , she reports flank pain started on 11/23 and spotting just a couple hours prior to arrival in ED. Pt is 4 Para 0 with hx of ruptured ectopic on R side in August of 2022. Source: patient (CHRIS RUIZ ) History of Present Illness Date Seen by Provider: Nov 24, 2022 Time Seen by Provider: 03:40 Initial Comments PT ARRIVES VIA POV FROM HOME PT STATES SHE IS 4 WEEKS , WITH LMP 10/30/22 SHE BEGAN HAVING SHARP STABBING PAIN IN [place] YESTERDAY MORNING 11/23/22 SHE BEGAN HAVING LIGHT SPOTTING ( BLOOD ON TISSUE WITH WIPING, ONLY) AN HOUR OR TWO AGO. SHE HAS NOT USED ANY PADS. PT IS NOW AB 3--SHE HAD A RIGHT ECTOPIC 09/06/22--FIRST TRIMESTER, AND HAD RIGHT SALPINGECTOMY, AND D&C. SHE STILL HAS HER RIGHT OVARY. SHE HAD D&C'S WITH PREVIOUS FIRST TRIMESTER MISCARRIAGES WELL SHE HAS NOT BEEN ON CONTROL, AND SHE HAD A NORMAL PERIOD IN SEPTEMBER SHE WAS SEEING DR. CISSE, BUT HE IS GOING TO BE RETIRING VERY SOON, AND SO IS ESTABLISHING WITH DR. MARTHA RODRIGUEZ AT [facility] IN [place]. SHE HAS HER FIRST APPOINTMENT 12/10/22 SHE HAD OUTPATIENT LAB ORDERED BY DR. RODRIGUEZ ON 11/21 AND 11/23. HER BETA HCG LEVELS WERE 101 ON 11/21/22 AND 266 ON 11/23/22 SHE STATES THIS PAIN IS THE SAME WITH HER ECTOPIC . NO DIZZINESS OR SYNCOPE NO URINARY SYMPTOMS NO FEVER NO NAUSEA/VOMITING. (SARACHRIS DO) Allergies and Home Medications Allergies Coded Allergies: sulfamethoxazole (Verified Allergy, Unknown, Rash, 03/20/22) trimethoprim (Verified Allergy, Unknown, Rash, 03/20/22) Patient Home Medication List Home Medication List Reviewed: Yes (TREV PORTILLO MD) Aspirin (Aspirin) 81 Mg Tab.chew, 81 MG PO DAILY, (Reported) Entered as Reported by: DAVID GARZA on 09/07/22 0523 Ibuprofen (Ibuprofen) 800 Mg Tablet, 800 MG PO Q6H PRN for PAIN Prescribed by: ELIAN ELLER on 09/07/22 07 Nitrofurantoin Monohyd/M-Cryst (Nitrofurantoin [place]-Mcr 100 mg) 100 Mg Capsule, (Reported) Entered as Reported by: MARNIE BLACKBURN on 09/06/222300 [place]-3/Dha/Epa/Fish Oil (Fish Oil 1,000 mg Softgel) 1,000 Mg (120 Mg-180 Mg) Capsule, 1,000 MG PO DAILY, (Reported) Entered as Reported by: DAVID GARZA on 09/07/22521 Oxycodone HCl/Acetaminophen (Percocet 5-325 mg Tablet) 5 Mg-325 Mg Tablet, 1 TAB PO Q4H PRN for PAIN-MODERATE Prescribed by: ELIAN ELLER on 09/07/22704 Pnv Cmb#21/Iron/Folic Acid ( Complete Caplet) 14 Mg Iron-400 Mcg Tablet, 1 EACH PO DAILY, (Reported) Entered as Reported by: CARLOS MORALES on 04/17/22 115 Progesterone,Micronized (Progesterone) 100 Mg Capsule, (Reported) Entered as Reported by: MARNIE BLACKBURN on 09/06/222300 Propranolol HCl (Propranolol HCl) 40 Mg Tablet, (Reported) Entered as Reported by: MARNIE BLACKBURN on 09/06/222300 Review of Systems Review of Systems Constitutional: no symptoms reported Respiratory: no symptoms reported Cardiovascular: no symptoms reported Gastrointestinal: see HPI Genitourinary: see HPI : Yes LMP: Oct 30, 2022 Musculoskeletal: no symptoms reported Skin: no symptoms reported Psychiatric/Neurological: No Symptoms Reported Endocrine: No Symptoms Reported Hematologic/Lymphatic: No Symptoms Reported (CHRIS RUIZ DO) Past Kxyaezf-Lizyjn-Eytjfq Hx Immunizations Up To Date Influenza Vaccine Up-to-Date: Yes; Up-to-Date First/Initial COVID19 Vaccinat: 12/14 Second COVID19 Vaccination Ruben: 12/14 Third COVID19 Vaccination Date: 12/14 (CHRIS RUIZ DO) Seasonal Allergies Seasonal Allergies: No (CHRIS RUIZ DO) Past Medical History Surgery/Hospitalization HX: WISDOM TEETH REMOVED D&C 09/20/2019 FOR DUB D&C X 2 FOR MISCARRIAGES--08/24/2021, 04/17/2022 RIGHT ECTOPIC 09/06/22 WITH RIGHT SALPINGECTOMY AND D&C BY DR. CISSE. Surgeries: Yes (wisdom teeth; D&C X4) Respiratory: No Currently Using CPAP: No Currently Using BIPAP: No Cardiac: No Neurological: Yes Headaches /Migraines : Yes Last Menstrual Period: Oct 30, 2022 Hx : 4 Hx Para: 0 Hx Total # of Abortions (Sp): 3 Reproductive Disorders: Yes (DUB; MULTIPLE MISCARRIAGES, R ECTOPIC ) Female Reproductive Disorders: Menstrual Problems Genitourinary: No Gastrointestinal: No Musculoskeletal: No Endocrine: No HEENT: No Cancer: No Psychosocial: No Integumentary: Yes (REPORTS MRSA SKIN INFECTION APPROX 12 YRS AGO, [place] WITH PO ABX) Blood Disorders: No (CHRIS RUIZ DO) Physical Exam Vital Signs Vital Signs - First Documented 11/24/22 11/24/22 03:43 09:00 Temp 36.6 Pulse 87 Resp 18 B/P (MAP) 122/89 (100) Pulse Ox 98 (TREV PORTILLO MD) Vital Signs Capillary Refill : Less Than 3 Seconds (CHRIS RUIZ DO) Height, Weight, BMI Height: '" Weight: lbs. oz. kg; 24.00 BMI Method: General Appearance: WD/WN, no apparent distress Cardiovascular: regular rate, rhythm Respiratory: normal breath sounds Gastrointestinal: normal bowel sounds, soft, no organomegaly, no pulsatile mass; No distended, No guarding, No rebound; tenderness (LLQ) Pelvic: normal external exam, normal adnexa, no cerv. motion tender, no masses; No discharge, No lesions; tender adnexa (LEFT); No vaginal bleeding (NO BLOOD IN CANAL OR FROM CERVIX. CERVIX IS NOT DILATED. 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, no motor/sensory deficits, alert, normal mood/affect, oriented x 3 Skin: normal color, warm/dry (CHRIS RUIZ DO) Progress/Results/Core Measures Suspected Sepsis SIRS Temperature: Pulse: 87 Respiratory Rate: 18 Laboratory Tests 11/24/22 04:00: White Blood Count 11.0 Blood Pressure 122 /89 Mean: 100 Laboratory Tests 11/24/22 04:00: Platelet Count 402H (CHRIS RUIZ DO) Results/Orders Lab Results Laboratory Tests Test 11/24/22 03:30 11/24/22 04:00 Range/Units Urine Color YELLOW Urine Clarity CLEAR Urine pH 6.0 5-9 Urine Specific [place] >=1.030 1.016-1.022 Urine Protein NEGATIVE NEGATIVE Urine Glucose (UA) NEGATIVE NEGATIVE Urine Ketones NEGATIVE NEGATIVE Urine Nitrite NEGATIVE NEGATIVE Urine Bilirubin NEGATIVE NEGATIVE Urine Urobilinogen 0.2 < = 1.0 MG/DL Urine Leukocyte Esterase NEGATIVE NEGATIVE Urine RBC (Auto) NEGATIVE NEGATIVE Urine RBC NONE /HPF Urine WBC NONE /HPF Urine Squamous Epithelial Cells 5-10 /HPF Urine Crystals NONE /LPF Urine Bacteria TRACE /HPF Urine Casts NONE /LPF Urine Mucus MODERATE H /LPF Urine Culture Indicated NO White Blood Count 11.0 4.3-11.0 10^3/uL Red Blood Count 4.67 3.80-5.11 10^6/uL Hemoglobin 13.9 11.5-16.0 g/dL Hematocrit 41 35-52 % Mean Corpuscular Volume 87 80-99 fL Mean Corpuscular Hemoglobin 30 25-34 pg Mean Corpuscular Hemoglobin Concent 34 32-36 g/dL Red Cell Distribution Width 12.5 10.0-14.5 % Platelet Count 402 H 130-400 10^3/uL Mean Platelet Volume 10.7 9.0-12.2 fL Immature Granulocyte % (Auto) 0 % Neutrophils (%) (Auto) 58 42-75 % Lymphocytes (%) (Auto) 32 12-44 % Monocytes (%) (Auto) 7 0-12 % Eosinophils (%) (Auto) 1 0-10 % Basophils (%) (Auto) 1 0-10 % Neutrophils # (Auto) 6.4 1.8-7.8 10^3/uL Lymphocytes # (Auto) 3.6 1.0-4.0 10^3/uL Monocytes # (Auto) 0.8 0.0-1.0 10^3/uL Eosinophils # (Auto) 0.1 0.0-0.3 10^3/uL Basophils # (Auto) 0.1 0.0-0.1 10^3/uL Immature Granulocyte # (Auto) 0.0 0.0-0.1 10^3/uL Human Chorionic Gonadotropin, Quant 387 H <5 MIU/ML (TREV PORTILLO MD) Vital Signs/I&O (TREV PORTILLO MD) Vital Signs/I&O Capillary Refill : Less Than 3 Seconds (CHRIS RUIZ DO) Blood Pressure Mean: 100 Progress Note : Progress Note LAB DRAWN. QUANT BETA HCG IS NOW UP TO 387--UP FROM 266 ON 11/23/22 AND 101 ON 11/21/22. ULTRASOUND ORDERED, BUT WILL NOT BE DONE UNTIL AFTER 0700. PT IS NOT CURRENTLY HAVING ANY PAIN OR BLEEDING AT THE TIME OF MY EXAM 0600--CARE TURNED OVER TO DR. PORTILLO, ULTRASOUND PENDING. PT IS RESTING COMFORTABLY AND HAS NO COMPLAINTS. SHE HAS NOT HAD ANY BLEEDING OR PAIN SINCE ARRIVAL. (CHRIS RUIZ DO) Progress Note : Time: 08:40 Progress Note 0841 Patient reassessed - pain free. U/S shows cyst in left ovary without concerning findings at this time for ectopic. No free fluid. Radiologist recommends repeat U/s in 24-48 hours. Patient is comfortable with plan of care. (TREV PORTILLO MD) Diagnostic Imaging Diagonstic Imaging: Ultrasound Comments [facility], [place] NAME: SAAD FISHER [facility] REC#: [id number] PT STATUS: REG ER : 1995 PHYSICIAN: CHRIS RUIZ DO ADMIT DATE: 11/24/22/ER Draft Date of Exam:11/24/22 US OB<14 WKS SNGLE W/TRANSVAG EXAM: US OB<14 WKS SINGLE W/TRANSVAG INDICATION: Pelvic pain. Positive test. History of ectopic . LMP 10/30/2022. COMPARISON: Pelvic ultrasound 09/07/2022. FINDINGS: The uterus measures 7.8 x 4.1 x 5.3 cm. The endometrium measures 1.4 cm in thickness. No fluid collections or evidence of a gestational sac within the endometrial canal. The right ovary measures 2.2 x 1.4 x 1.5 cm. The left ovary measures 4.3 x 2.3 x 2.2 cm. A simple-appearing cyst in the left ovary measures 1.3 x 1.5 x 1.3 cm. There is a more heterogeneous region in the left ovary measuring 1.9 x 1.7 x 2.1 cm. No free fluid in the pelvis. Normal flow by color Doppler in both ovaries. IMPRESSION: 1. No evidence of an intrauterine . 2. There is an indeterminate heterogeneous circumscribed region in the left ovary measuring up to 2.1 cm which is somewhat cystic centrally. This demonstrates no "ring of fire" on Doppler imaging and may represent a hemorrhagic cyst. This does not demonstrate the typical Doppler findings of an ectopic . There is no free fluid in the pelvis. However, an ectopic cannot entirely be excluded by this exam. Recommend short-term follow-up in 24 to 48 hours. 3. Stable simple cyst in the left ovary. Dictated on workstation # [id number] Dict: 11/24/22 0754 Trans: 11/24/22 0812 [facility] [id number] Interpreted by: NILDA HALE MD Electronically signed by: (TREV PORTILLO MD) Departure Impression Primary Impression: Pelvic pain Additional Impression: Qualified Codes: Z3A.01 - Less than 8 weeks gestation of Disposition: HOME, SELF-CARE Condition: Stable Departure-Patient Inst. Decision time for Depature: 08:43 (TREV PORTILLO MD) Referrals: MICHELLE KRAMER DO (PCP/Family) Primary Care Physician Patient Instructions: Pelvic Pain (DC) Add. Discharge Instructions: Drink plenty of fluids to stay well-hydrated. Come back to the hospital in 24 to 48 hours for a repeat pelvic ultrasound. If you have, in the meantime worsening pain, vaginal bleeding or any other emergent concerning symptoms please come back to the emergency department sooner for reevaluation CHRIS RUIZ DO Nov 24, 2022 04:12 TREV PORTILLO MD Nov 24, 2022 08:36
[2022-11-24 04:14] LABS: BASOPHILS # (AUTO) 0.1 10^3/uL (0.0-0.1); BASOPHILS % (AUTO) 1 % (0-10); EOSINOPHILS # (AUTO) 0.1 10^3/uL (0.0-0.3); EOSINOPHILS % (AUTO) 1 % (0-10); HEMATOCRIT 41 % (35-52); HEMOGLOBIN 13.9 g/dL (11.5-16.0); LYMPHOCYTES # (AUTO) 3.6 10^3/uL (1.0-4.0); LYMPHOCYTES % (AUTO) 32 % (12-44); MEAN CORPUSCULAR HEMOGLOBIN 30 pg (25-34); MEAN CORPUSCULAR HGB CONC 34 g/dL (32-36); MEAN CORPUSCULAR VOLUME 87 fL (80-99); MEAN PLATELET VOLUME 10.7 fL (9.0-12.2); MONOCYTES # (AUTO) 0.8 10^3/uL (0.0-1.0); MONOCYTES % (AUTO) 7 % (0-12); NEUTROPHILS # (AUTO) 6.4 10^3/uL (1.8-7.8); NEUTROPHILS % (AUTO) 58 % (42-75); PLATELET COUNT 402 10^3/uL (130-400)
--- NOTE | 2022-11-24 08:12 | Diagnostic Imaging Report ---
EXAM: US OB<14 WKS SINGLE W/TRANSVAG INDICATION: Pelvic pain. Positive test. History of ectopic . LMP 10/30/2022. COMPARISON: Pelvic ultrasound 09/07/2022. FINDINGS: The uterus measures 7.8 x 4.1 x 5.3 cm. The endometrium measures 1.4 cm in thickness. No fluid collections or evidence of a gestational sac within the endometrial canal. The right ovary measures 2.2 x 1.4 x 1.5 cm. The left ovary measures 4.3 x 2.3 x 2.2 cm. A simple-appearing cyst in the left ovary measures 1.3 x 1.5 x 1.3 cm. There is a more heterogeneous region in the left ovary measuring 1.9 x 1.7 x 2.1 cm. No free fluid in the pelvis. Normal flow by color Doppler in both ovaries. IMPRESSION: 1. No evidence of an intrauterine . 2. There is an indeterminate heterogeneous circumscribed region in the left ovary measuring up to 2.1 cm which is somewhat cystic centrally. This demonstrates no "ring of fire" on Doppler imaging and may represent a hemorrhagic cyst. This does not demonstrate the typical Doppler findings of an ectopic . There is no free fluid in the pelvis. However, an ectopic cannot entirely be excluded by this exam. Recommend short-term follow-up in 24 to 48 hours. 3. Stable simple cyst in the left ovary. Dictated by: Dictated on workstation # [id number]
[2022-11-24 09:00] VITALS: BP 119/83
== END 2022-11-24 09:00 | disposition home or self-care (01) ==
LOC: EDUNIT# 03:20 → ER 03:22
DX: O34.81 Maternal care for other abnormalities of pelvic organs, first trimester (principal); N83.202 Unspecified ovarian cyst, left side; Z3A.01 Less than 8 weeks gestation of pregnancy
CPT/HCPCS: 36415; 76801; 76817; 81000; 84702; 85025

== ENCOUNTER → 2022-11-26 | Outpatient (CLI) | payer OTHER ==
--- NOTE | 2022-11-26 14:33 | Diagnostic Imaging Report ---
PROCEDURE: Pelvic complete, transabdominal and transvaginal sonogram. Limited pelvic doppler. TECHNIQUE: Multiple real-time grayscale images were obtained of the pelvis in various projections transabdominally and transvaginally. Limited pelvic duplex images were obtained. HISTORY: LEFT SIDED PELVIC PAIN IN EARLY COMPARISON: 11/24/2022. FINDINGS: Uterus: The uterus is anteverted and measures 7.4 x 4.2 x 4.8 cm. The myometrium is homogeneous without fibroids. Endometrium: The endometrium is increased in thickness and measures 1.6 cm. There is no fluid or cystic structure within the endometrium. Adnexa: The right ovary is unremarkable. The left ovary contains two cystic lesions, one of which is mildly complex and may represent a hemorrhagic or corpus luteum cyst. These are not significantly changed from prior exam. The right ovary measures 2.2 x 1.6 x 1.4 cm and the left ovary measures 3.5 x 2.0 x 2.5 cm. Duplex images reveal normal vascular flow to both ovaries. Other: There is no free fluid within the pelvis. IMPRESSION: 1. Mild thickening of the endometrium without visualized intrauterine gestation. Findings can be seen with early, failed, or nonvisualized ectopic . Recommend continued follow-up with beta hCG and ultrasound as clinically indicated. 2. Overall stable appearance of the left ovarian cystic lesions. Attention on follow-up imaging. Dictated by: Dictated on workstation # [id number]
== END ==
LOC: RAD 12:49
PROVIDERS: ATTEND Emergency Medicine
DX: R10.2 Pelvic and perineal pain (principal); Z34.91 Encounter for supervision of normal pregnancy, unspecified, first trimester; Z3A.00 Weeks of gestation of pregnancy not specified
CPT/HCPCS: 76801; 76817

== ENCOUNTER 2022-12-02 21:17 | Emergency (ER) | payer OTHER ==
[~2022-12-02] VITALS: Ht 160 cm; Wt 83.9 kg
[2022-12-02 22:46] LABS: BILIRUBIN,URINE NEGATIVE (NEGATIVE); CLARITY,URINE CLEAR; COLOR,URINE YELLOW; GLUCOSE, URINE (UA) NEGATIVE (NEGATIVE); KETONES,URINE NEGATIVE (NEGATIVE); LEUKOCYTE ESTERASE ,URINE NEGATIVE (NEGATIVE); NITRITE,URINE NEGATIVE (NEGATIVE); PROTEIN,URINE NEGATIVE (NEGATIVE)
[2022-12-02 22:55] LABS: BASOPHILS # (AUTO) 0.1 10^3/uL (0.0-0.1); BASOPHILS % (AUTO) 1 % (0-10); EOSINOPHILS # (AUTO) 0.1 10^3/uL (0.0-0.3); EOSINOPHILS % (AUTO) 1 % (0-10); HEMATOCRIT 39 % (35-52); LYMPHOCYTES # (AUTO) 3.3 10^3/uL (1.0-4.0); LYMPHOCYTES % (AUTO) 27 % (12-44); MEAN CORPUSCULAR HEMOGLOBIN 29 pg (25-34); MEAN CORPUSCULAR HGB CONC 33 g/dL (32-36); MEAN CORPUSCULAR VOLUME 89 fL (80-99); MEAN PLATELET VOLUME 10.6 fL (9.0-12.2); MONOCYTES # (AUTO) 0.9 10^3/uL (0.0-1.0); MONOCYTES % (AUTO) 7 % (0-12); NEUTROPHILS # (AUTO) 7.8 10^3/uL (1.8-7.8); NEUTROPHILS % (AUTO) 64 % (42-75); PLATELET COUNT 355 10^3/uL (130-400); WHITE BLOOD COUNT 12.3 10^3/uL (4.3-11.0)
[2022-12-02 23:06] LABS: BACTERIA,URINE NEGATIVE /HPF
--- NOTE | 2022-12-03 00:31 | ED GU-Female ---
General Chief Complaint: OB < 20 WEEKS Stated Complaint: 5 WKS ,SPOTTING,LT LEG PAIN Nursing Triage Note: Pt reports intermittent leg pain beginning today with spotting. Pt states she is 5 weeks . Pt reports her symptoms are the same as when she was last in August and had an ectopic . Source: patient, old records Exam Limitations: no limitations History of Present Illness Date Seen by Provider: Dec 02, 2022 Time Seen by Provider: 21:27 Initial Comments This 27-year-old young lady at approximately 5 weeks gestational age presents to the emergency room with complaints of vaginal spotting and left-sided leg pain that radiates from the buttock region all the way down her leg. She states this is a very similar presentation to a prior ectopic that ruptured. She was seen previously at this facility and had an inconclusive ultrasound. Ectopic could not be completely ruled out. She is establishing obstetrical care with Dr. Osborne at [facility] in [place] but has not yet had her initial appointment. She previously saw Dr. CISSE in [place]. She has had 2 prior miscarriages and an ectopic . Allergies and Home Medications Allergies Coded Allergies: sulfamethoxazole (Verified Allergy, Unknown, Rash, 03/20/22) trimethoprim (Verified Allergy, Unknown, Rash, 03/20/22) Patient Home Medication List Home Medication List Reviewed: Yes Aspirin (Aspirin) 81 Mg Tab.chew, 81 MG PO DAILY, (Reported) Entered as Reported by: DAVID GARZA on 09/07/22 0523 Ibuprofen (Ibuprofen) 800 Mg Tablet, 800 MG PO Q6H PRN for PAIN Prescribed by: ELIAN ELLER on 09/07/22 0705 Nitrofurantoin Monohyd/M-Cryst (Nitrofurantoin [place]-Mcr 100 mg) 100 Mg Capsule, (Reported) Entered as Reported by: MARNIE BLACKBURN on 09/06/22 2301 [place]-3/Dha/Epa/Fish Oil (Fish Oil 1,000 mg Softgel) 1,000 Mg (120 Mg-180 Mg) Capsule, 1,000 MG PO DAILY, (Reported) Entered as Reported by: DAVID GARZA on 09/07/22 0522 Oxycodone HCl/Acetaminophen (Percocet 5-325 mg Tablet) 5 Mg-325 Mg Tablet, 1 TAB PO Q4H PRN for PAIN-MODERATE Prescribed by: ELIAN ELLER on 09/07/22 0705 Pnv Cmb#21/Iron/Folic Acid ( Complete Caplet) 14 Mg Iron-400 Mcg Tablet, 1 EACH PO DAILY, (Reported) Entered as Reported by: CARLOS MORALES on 04/17/22 1150 Progesterone,Micronized (Progesterone) 100 Mg Capsule, (Reported) Entered as Reported by: MARNIE BLACKBURN on 09/06/22 230 Propranolol HCl (Propranolol HCl) 40 Mg Tablet, (Reported) Entered as Reported by: MARNIE BLACKBURN on 09/06/222300 Review of Systems Review of Systems Constitutional: no symptoms reported EENTM: no symptoms reported Respiratory: no symptoms reported Cardiovascular: no symptoms reported Gastrointestinal: no symptoms reported Genitourinary: see HPI : Yes LMP: Oct 30, 2022 Musculoskeletal: see HPI Skin: no symptoms reported Psychiatric/Neurological: No Symptoms Reported Endocrine: No Symptoms Reported Hematologic/Lymphatic: No Symptoms Reported Past Xeufmuz-Uwvjbw-Kyxpri Hx Patient Social History Tobacco Use?: No Smokeless Tobacco Frequency: Never a User Use of E-Cig and/or Vaping dev: No Substance use?: No Alcohol Use?: No Pt feels they are or have been: No Immunizations Up To Date Influenza Vaccine Up-to-Date: Yes; Up-to-Date First/Initial COVID19 Vaccinat: 12/14 Second COVID19 Vaccination Ruben: 12/14 Third COVID19 Vaccination Date: 12/14 COVID19 Vaccine Rat Breeder: MENABANQERvianca Seasonal Allergies Seasonal Allergies: No Past Medical History Surgery/Hospitalization HX: WISDOM TEETH REMOVEDD&C 09/20/2019 FOR DUBD&C X 2 FOR MISCARRIAGES--08/24/2021, 04/17/2022IGHT ECTOPIC 09/06/22 WITH RIGHT SALPINGECTOMY AND D&C BY . Surgeries: Yes (wisdom teeth; D&C X4, right salpingectomy) Respiratory: No Currently Using CPAP: No Currently Using BIPAP: No Cardiac: No Neurological: Yes Headaches /Migraines : Yes Last Menstrual Period: Oct 30, 2022 Reproductive Disorders: Yes (DUB; MULTIPLE MISCARRIAGES, R ECTOPIC ) Female Reproductive Disorders: Menstrual Problems Genitourinary: No Gastrointestinal: No Musculoskeletal: No Endocrine: No HEENT: No Cancer: No Psychosocial: No Integumentary: Yes (REPORTS MRSA SKIN INFECTION APPROX 12 YRS AGO, [place] WITH PO ABX) Blood Disorders: No Physical Exam Vital Signs Vital Signs - First Documented 12/02/22 21:22 Temp 36.7 Pulse 95 Resp 18 B/P (MAP) 129/78 (95) Pulse Ox 100 O2 Delivery Room Air Capillary Refill : Height, Weight, BMI Height: '" Weight: lbs. oz. kg; 32.00 BMI Method: General Appearance: WD/WN, no apparent distress HEENT: normal ENT inspection Neck: normal inspection Cardiovascular: regular rate, rhythm, no edema, no murmur Respiratory: lungs clear, normal breath sounds, no respiratory distress Gastrointestinal: non tender, soft; No distended Extremities: normal inspection, no pedal edema Neurologic/Psychiatric: paralegal legal secretary II-XII nml as tested, no motor/sensory deficits, alert, normal mood/affect, oriented x 3 Skin: normal color, warm/dry Progress/Results/Core Measures Suspected Sepsis SIRS Temperature: Pulse: 95 Respiratory Rate: 18 Laboratory Tests 12/02/22 22:46: White Blood Count 12.3H Blood Pressure 129 /78 Mean: 95 Laboratory Tests 12/02/22 22:46: Platelet Count 355 Results/Orders Lab Results Laboratory Tests Test 12/02/22 22:42 12/02/22 22:46 Range/Units Urine Color YELLOW Urine Clarity CLEAR Urine pH 6.0 5-9 Urine Specific [place] >=1.030 1.016-1.022 Urine Protein NEGATIVE NEGATIVE Urine Glucose (UA) NEGATIVE NEGATIVE Urine Ketones NEGATIVE NEGATIVE Urine Nitrite NEGATIVE NEGATIVE Urine Bilirubin NEGATIVE NEGATIVE Urine Urobilinogen 0.2 < = 1.0 MG/DL Urine Leukocyte Esterase NEGATIVE NEGATIVE Urine RBC (Auto) NEGATIVE NEGATIVE Urine RBC NONE /HPF Urine WBC NONE /HPF Urine Crystals NONE /LPF Urine Bacteria NEGATIVE /HPF Urine Casts NONE /LPF Urine Mucus NEGATIVE /LPF Urine Culture Indicated NO White Blood Count 12.3 H 4.3-11.0 10^3/uL Red Blood Count 4.42 3.80-5.11 10^6/uL Hemoglobin 13.0 11.5-16.0 g/dL Hematocrit 39 35-52 % Mean Corpuscular Volume 89 80-99 fL Mean Corpuscular Hemoglobin 29 25-34 pg Mean Corpuscular Hemoglobin Concent 33 32-36 g/dL Red Cell Distribution Width 12.7 10.0-14.5 % Platelet Count 355 130-400 10^3/uL Mean Platelet Volume 10.6 9.0-12.2 fL Immature Granulocyte % (Auto) 0 % Neutrophils (%) (Auto) 64 42-75 % Lymphocytes (%) (Auto) 27 12-44 % Monocytes (%) (Auto) 7 0-12 % Eosinophils (%) (Auto) 1 0-10 % Basophils (%) (Auto) 1 0-10 % Neutrophils # (Auto) 7.8 1.8-7.8 10^3/uL Lymphocytes # (Auto) 3.3 1.0-4.0 10^3/uL Monocytes # (Auto) 0.9 0.0-1.0 10^3/uL Eosinophils # (Auto) 0.1 0.0-0.3 10^3/uL Basophils # (Auto) 0.1 0.0-0.1 10^3/uL Immature Granulocyte # (Auto) 0.0 0.0-0.1 10^3/uL Human Chorionic Gonadotropin, Quant [id number] H <5 MIU/ML My Orders Orders - NIVIA LÓPEZ MD Cbc With Automated Diff (12/02/22 21:27) Hcg,Quantitative (12/02/22 21:27) Ua Culture If Indicated (12/02/22 21:27) Us Ob<14 Wks Sngle W/Transvag (12/03/22 00:39) Vital Signs/I&O 12/02/22 12/03/22 21:22 02:10 Temp 36.7 36.7 Pulse 95 92 Resp 18 18 B/P (MAP) 129/78 (95) 127/87 Pulse Ox 100 100 O2 Delivery Room Air Room Air Capillary Refill : Blood Pressure Mean: 95 Progress Note : Progress Note Ultrasound was obtained which revealed evidence of an intrauterine and no evidence of ectopic . hCG level was around 12,000. is likely viable at this time and close follow-up with her new machine greaser is recommended. Diagnostic Imaging Diagonstic Imaging: Ultrasound Plain Films/CT/US/NM/MRI: pelvis Comments Ultrasound results were discussed with the reordering clerk and [facility] report was reviewed. Ultrasound revealed an "intrauterine gestational sac containing yolk sac. Mean gestational sac diameter of 11 mm corresponds to gestational age of approximately 5 weeks and 6 days. No definite pole is identified at this stage. Consider short-term follow-up pelvic sonogram within 10 to 14 days to confirm viability." Departure Impression Primary Impression: Vaginal bleeding affecting early Disposition: HOME, SELF-CARE Condition: Stable Departure-Patient Inst. Decision time for Depature: 02:04 Referrals: MICHELLE KRAMER DO (PCP/Family) Primary Care Physician Patient Instructions: Bleeding In Early Add. Discharge Instructions: Your hCG hormone level and ultrasound correlate well with your gestational age. Please observe pelvic rest (nothing vaginally including intercourse) until otherwise directed by your machine greaser. You may resume activities of daily l iving but avoid strenuous activities or heavy lifting. Return to care if you develop worsening symptoms such as escalating pain, hemorrhaging, fever, etc. For cramping you may take Tylenol (acetaminophen) up to 1000 mg every 6 hours as needed. Benadryl (diphenhydramine) 25 mg every 4 hours may also help with cramping. Stay well-hydrated by drinking plenty of clear liquids. Contact your machine greaser this morning to provide an update. All discharge instructions reviewed with patient and/or family. Voiced u nderstanding. NIVIA LÓEPZ MD Dec 03, 2022 00:31
[2022-12-03 02:10] VITALS: BP 127/87
--- NOTE | 2022-12-03 06:54 | Diagnostic Imaging Report ---
INDICATION: 5 weeks , history of ectopic . Vaginal spotting. TECHNIQUE: Multiple real-time grayscale images were obtained of the gravid uterus. CORRELATION STUDY: 11/26/2022 FINDINGS: Uterus 8.1 x 4.1 x 5.2 cm. There is presence of an intrauterine fluid collection compatible with gestational sac. This contains a yolk sac. pole is not yet visualized. The right ovary not visualized. Left ovary 3.4 x 2.4 x 2.6 cm and unremarkable. No abnormal adnexal mass or significant pelvic fluid. IMPRESSION: 1. Findings compatible with an intrauterine gestational sac containing a yolk sac only. pole not yet identified. Gestational sac diameter would suggest an age of approximately 5 weeks 6 days. Consider short-term follow up pelvic sonogram within 10-14 days to confirm appropriate development and viability. 2. Nonvisualized right ovary. Initial report was provided by Michela. Dictated by: Dictated on workstation # [id number]
== END 2022-12-03 02:10 | disposition home or self-care (01) ==
LOC: EDUNIT# 21:17 → ER 21:19
DX: O20.9 Hemorrhage in early pregnancy, unspecified (principal); Z3A.01 Less than 8 weeks gestation of pregnancy
CPT/HCPCS: 36415; 76801; 76817; 81000; 84702; 85025

== ENCOUNTER → 2023-04-08 | Outpatient (CLI) | payer OTHER ==
[2023-04-08 12:50] LABS: BILIRUBIN,URINE NEGATIVE (NEGATIVE); CLARITY,URINE CLEAR; COLOR,URINE YELLOW; GLUCOSE, URINE (UA) NEGATIVE (NEGATIVE); KETONES,URINE NEGATIVE (NEGATIVE); LEUKOCYTE ESTERASE ,URINE NEGATIVE (NEGATIVE); NITRITE,URINE NEGATIVE (NEGATIVE); PH,URINE 6.5 (5-9); PROTEIN,URINE NEGATIVE (NEGATIVE)
[2023-04-08 12:58] LABS: AMORPHOUS SEDIMENT,UR RARE AMOR URATES /LPF; BACTERIA,URINE NEGATIVE /HPF; SQUAMOUS EPITHELIAL CELL,UR RARE /HPF
== END ==
LOC: SDC 12:29
PROVIDERS: ATTEND Obstetrics & Gynecology
DX: R35.0 Frequency of micturition (principal)
CPT/HCPCS: 81000; 87088